=== PATIENT | female | born 2005 | race Caucasian/White ===

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

== ENCOUNTER 2024-01-14 02:13 | Inpatient (IN) | payer OTHER, MEDICAID ==
[~2024-01-14] VITALS: Ht 165.1 cm; Wt 65.9 kg
[2024-01-14] VITALS (11 sets, daily range): BP systolic 95–106; BP diastolic 49–66; PULSE 82–116; TEMP 98.3–101.2; O2SAT 100
[~2024-01-14 02:13] MED LIST changes: -cefTRIAXone 250 MG,Lidocaine PF 1% 0.9 ML IM ONE; -cefTRIAXone 500 MG,Lidocaine PF 1% 1 ML IM ONE
[2024-01-14 02:57] LABS: HEMATOCRIT 39.4 % (35.0-45.0); HEMOGLOBIN 13.2 g/dl (12.0-15.0); MEAN CELL VOLUME 90 fl (80.0-95.0); MEAN CORPUSCULAR HEMOGLOBIN 30 pg (26-32); MEAN CORPUSCULAR HGB CONC 34 g/dl (33.0-37.0); MEAN PLATELET VOLUME 11.2 fl (7.4-10.4); PLATELET COUNT 118 K/mm3 (130-400); REDCELL DISTRIBUTION WIDTH-CV 13.7 % (11.5-14.5)
[2024-01-14] MEDS ORDERED: Acetaminophen 325 MG TAB PO ONE (03:00)
[2024-01-14] MEDS ORDERED: NS 1,000 ML IV ONE (03:00)
[2024-01-14 03:06] LABS: MONOSCREEN NEGATIVE
[2024-01-14 03:08] LABS: ALBUMIN 3.8 g/dL (3.5-5.0); BILIRUBIN,TOTAL 0.3 mg/dL (0.2-1.2); C-REACTIVE PROTEIN 9.21 mg/dL (0.00-0.50); CALCIUM 8.6 mg/dL (8.4-10.2); CREATININE, serum 0.93 mg/dL (0.57-1.11); ERYTHROCYTE SEDIMENTATION RATE 5 mm/hr (0-20); POTASSIUM 3.9 mEq/L (3.5-4.5); TOTAL PROTEIN 6.7 g/dl (6.2-8.1)
[2024-01-14 03:27] LABS: BAND 35 % (0-10); LYMPHOCYTE 3 % (20.0-51.0); NEUTROPHILS 59 % (42.0-75.2); PLATELET ESTIMATE NORMAL (NORMAL)
[2024-01-14 03:44] LABS: COLLECTION METHOD CLEAN CATCH
[2024-01-14] MEDS ORDERED: cefTRIAXone 1 G in Water For Injection,Sterile 10 ML IV ONE (03:45)
[2024-01-14 03:52] LABS: PH 5.5 (5.0-8.5); URINE APPEARANCE CLEAR (CLEAR/HAZY); URINE BLOOD 2+ (NEGATIVE); URINE COLOR Dark Yellow (YELLOW); URINE GLUCOSE NEGATIVE (NEGATIVE); URINE KETONE TRACE (NEGATIVE); URINE NITRATE NEGATIVE (NEGATIVE); URINE PROTEIN(semi-quant) 1+ (NEGATIVE)
[2024-01-14] MEDS ORDERED: Iohexol 300 - 100 ML VIAL IV ONE (04:31)
[2024-01-14] MEDS ORDERED: NS 50 ML IV ONE (04:32)
[2024-01-14] MEDS ORDERED: LR 1,000 ML IV ONE (05:00)
[2024-01-14] MEDS ORDERED: NS 1,000 ML IV SCH (05:30)
[2024-01-14] MEDS ORDERED: Ondansetron 4 MG/2 ML VIAL IV PRN (05:30)
[2024-01-14] MEDS ORDERED: Acetaminophen 325 MG TAB PO PRN (05:30)
--- NOTE | 2024-01-14 06:14 | NUR ---
Vancomycin Initial Dosing Pharmacy Note Ordering provider: Nayan Wang MD Indication/duration: Sepsis, 7 days LABS: SCr 0.93, CrCl~77, GFR 91 Recommendation: Will start Vancomycin 1 gm IV q8h. Pharmacy will continue to closely monitor and check a trough on 01/15/24. Maintenance dose: 1 gram every 8 hours Trough goal: 15-20 ug/mL
--- NOTE | 2024-01-14 06:30 | NUR ---
PATIENT ARRIVED TO ROOM VIA WHEELCHAIR ACCOMPANIED BY GUARD FROM [facility]. SHE WAS ABLE TO AMBULATE FROM WHEELCHAIR TO BED WITHOUT ANY SUPPORTIVE DEVICES. REPORTS PAIN IN HER HEAD, BACK, AND NECK WHICH SHE RATES 8/10. IV NORMAL SALINE INITIATED AT 100 ML/HR. SHE IS ALERT AND ORIENTED AND STABLE ON ROOM AIR. TELEMETRY MONITORING IS IN PLACE. INSTRUCTED NATURAL SCIENCE MANAGER LIGHT USE AND ENSURED CALL LIGHT IS WITHIN REACH. BED IS LOCKED AND IN LOW POSITION.
--- NOTE | 2024-01-14 07:42 | NUR ---
Bedside report received from MELIA Boss. Pt awake in bed having complaints of itchiness on head and upper body. PCT [facility] reported temp of 101.2. Dr. Wang notifed by phone of pt complaints and temperature. Vancomycin infusion stopped per Dr. Wang verbal order and IVF infusing into LAC as ordered. Dr. Wang instructed this nurse to administer Benadryl 15 mg PO once now as verbal order and read back. PRN Tylenol administered per emar for elevated temperature. Pt has no other complaints. Call light within reach.
[2024-01-14] MEDS ORDERED: diphenhydrAMINE 25 MG CAP PO ONE (08:15)
--- NOTE | 2024-01-14 09:35 | NUR ---
SW met with patient to complete initial assessment for discharge planning. Chart reviewed prior to visit. Patient has [employer] officer at bedside due to patient being in custody at this time. Patient verified that she lists her mother Lauren Lorenzo ([phone]) as primary contact. Per officer, patient is planned to return to penitentiary at time of discharge.
--- NOTE | 2024-01-14 09:38 | NUR ---
Pt resting in bed with no complaints. Shift assessment completed. VSS. Recheck temperature noted at 99.9. Officer at bedside with pt. IVF infusing into LAC with no complications. Telemetry in place. Pt has no complaints at this time. Call light within reach.
[2024-01-14] MEDS ORDERED: oxyCODONE 5 MG TAB PO PRN (10:00)
[2024-01-14] MEDS ORDERED: Azithromycin 250 MG TAB PO ONE (10:00)
[2024-01-14] MEDS ORDERED: BACTRIM DS 8001 TAB PO (11:29)
[2024-01-14] MEDS ORDERED: Ibuprofen 600 MG TAB PO ONE (16:00)
--- NOTE | 2024-01-14 20:38 | NUR ---
UPON SHIFT ASSESSMENT RICCO WAS AXO X 4 IN BED. PRECISE WINDER WAS BEDSIDE. SHE DENIES FLANK PAIN AND SOA AT THIS TIME. VS ARE CURRENTLY WNL. [facility], "I AM STARVING." PATIENT HAS AMBULATED TO RESTROOM WITH NO COMPLICATIONS AND DENIES DYSURIA OR FREQUENCY. PHYSICAL AND MED PASS COMPLETE.
--- NOTE | 2024-01-14 23:30 | NUR ---
CALL PLACED TO HOSPITALISTBALJINDER. PATIENT C/O OF ITCHY RASH R/T ALLERGIC REACTION FROM VANCOMYCIN ADMINISTERED ON 01/14/24 AT 0700. PATIENT HAS MILD RASH ON BLLE AND LLE. TORB FOR 25MG BENADRYL IV GIVEN.
[2024-01-14] MEDS ORDERED: Menthol Cough/Sore Throat LOZENGE MM PRN (23:45)
[2024-01-14] MEDS ORDERED: diphenhydrAMINE 50 MG/ML 1 ML VIAL IV ONE (23:45)
[2024-01-15] VITALS (12 sets, daily range): BP systolic 96–121; BP diastolic 53–77; PULSE 62–110; TEMP 98.2–102.5
--- NOTE | 2024-01-15 03:30 | NUR ---
CALL PLACED TO HOSPITALIST BALJINDER. PATIENT RASH SPREADING AND PATIENT CONTINUES TO COMPLAIN OF ITCHING AND FACIAL SWELLING. AIRWAY IS PATENT. PATIENT FEBRILE AT 102 AND WAS GIVEN TYLENOL. HOSPITALIST ASSESSING PATIENT BEDSIDE. VORB TO PAUSE ZOSYN ADMINISTERATION AND GIVE SOLUMEDROL, PEPSCID AND BENADRYL GIVEN. HOSPITALIST TO PLACE DOSEAGE.
[2024-01-15] MEDS ORDERED: methylPREDNISolone Sod Succ 40 MG/ML VIAL IV ONE (03:45)
[2024-01-15] MEDS ORDERED: diphenhydrAMINE 50 MG/ML 1 ML VIAL IV ONE (03:45)
[2024-01-15] MEDS ORDERED: cefTRIAXone 1 G in Water For Injection,Sterile 10 ML IV SCH (04:00)
[2024-01-15 06:21] LABS: HEMOGLOBIN 11.7 g/dl (12.0-15.0); MEAN CELL VOLUME 90 fl (80.0-95.0); MEAN CORPUSCULAR HEMOGLOBIN 31 pg (26-32); MEAN CORPUSCULAR HGB CONC 34 g/dl (33.0-37.0); PLATELET COUNT 82 K/mm3 (130-400); RED BLOOD COUNT 3.82 M/mm3 (4.10-5.30)
[2024-01-15 06:34] LABS: CALCIUM 7.7 mg/dL (8.4-10.2); CREATININE, serum 0.73 mg/dL (0.57-1.11); POTASSIUM 3.6 mEq/L (3.5-4.5)
[2024-01-15 06:43] LABS: HEMATOCRIT 34.5 % (35.0-45.0)
[2024-01-15 07:36] LABS: BAND 43 % (0-10); EOSINOPHIL 1 % (0-4); LYMPHOCYTE 14 % (20.0-51.0); NEUTROPHILS 40 % (42.0-75.2); PLATELET ESTIMATE DECREASED (NORMAL)
[2024-01-15 07:38] LABS: BURR CELLS 1+
[2024-01-15] MEDS ORDERED: diphenhydrAMINE 25 MG CAP PO PRN (10:30)
[2024-01-15] MEDS ORDERED: diphenhydrAMINE 25 MG CAP PO SCH (11:00)
[2024-01-15] MEDS ORDERED: methylPREDNISolone Sod Succ 40 MG/ML VIAL IV SCH (11:00)
--- NOTE | 2024-01-15 12:10 | NUR ---
D: Toilet Products Molder stopped by room on rounds. A: Pt was resting and content. Pt has no needs right now. P: Toilet Products Molder informed pt that if she needed anything from the frame stripper area to let her nurse know. Toilet Products Molder will follow up as needed.
[2024-01-15] MEDS ORDERED: oxyCODONE 5 MG TAB PO PRN (13:00)
--- NOTE | 2024-01-15 13:59 | NUR ---
PATIENT ALERT AND ORIENTED X4. VSS. PATIENT HERE FOR UTI, SOA, CHEST TIGHTNESS. PATIENT DOES NOT REPORT PAIN THIS AM. IV TO LEFT AC WITH NS RUNNING AT 100ML/HOUR. AM MEDS ADMINISTERED. PATIENT REPORTS RASH SCATTERED THROUGHOUT UPPER AND LOWER EXTREMITIES AND TRUCK. POELL NOTIFIED. IV ABX STOPPED TO MONITOR AND BENADRYL, SOLUMEDROL ORDERED. NO FURTHER NEEDS. CALL LIGHT IN REACH.
--- NOTE | 2024-01-15 15:15 | NUR ---
THIS NURSE WAS INFORMED BY [facility] THAT THIS PATIENT IS NO LONGER IN CUSTODY AND IS NOW RELEASED FROM THEIR PROTECTION. [employer] STATED THEY NO LONGER NEED TO BE INFORMED OR CONTACTED REGARDING THIS PATIENT. HOUSE AND CHARGE NURSE NOTIFED OF THIS CHANGE.
--- NOTE | 2024-01-15 18:34 | NUR ---
PT RESTING IN BED WITH FRIEND AT BEDSIDE. PT SHOWERED THIS AFTERNOON AND REPORTS FEELING MUCH BETTER TODAY THAN YESTERDAY. PT DENIES PAIN AT THIS TIME. PT HAS NO QUESTIONS OR CONCERNS. CALL LIGHT WITHIN REACH. BED IN LOWEST POSITION.
--- NOTE | 2024-01-15 20:05 | NUR ---
Patient resting in bed with significant other at bedside. Denies any pain. Snack and fresh water provided. Assessment complete. IV in left AC infusing without complications. Call light and persoanl items in reach. Bed in low position.
[2024-01-16] VITALS (8 sets, daily range): BP systolic 111–119; BP diastolic 65–79; PULSE 52–78; TEMP 97.4–98.6
--- NOTE | 2024-01-16 03:10 | NUR ---
Hospitalist called and notifed patient is unable to sleep and hasn't been able to sleep all night. Recieved orders for 6mg melatonin QHS prn.
[2024-01-16] MEDS ORDERED: Melatonin 3 MG TAB PO PRN (03:15)
[2024-01-16 06:11] LABS: HEMATOCRIT 36.1 % (35.0-45.0); MEAN CELL VOLUME 89 fl (80.0-95.0); MEAN CORPUSCULAR HEMOGLOBIN 30 pg (26-32); MEAN CORPUSCULAR HGB CONC 33 g/dl (33.0-37.0); MEAN PLATELET VOLUME 12.1 fl (7.4-10.4); PLATELET COUNT 93 K/mm3 (130-400); RED BLOOD COUNT 4.06 M/mm3 (4.10-5.30); REDCELL DISTRIBUTION WIDTH-CV 14.2 % (11.5-14.5)
[2024-01-16 06:30] LABS: CALCIUM 8.3 mg/dL (8.4-10.2); CREATININE, serum 0.66 mg/dL (0.57-1.11); POTASSIUM 3.9 mEq/L (3.5-4.5)
[2024-01-16 07:02] LABS: BAND 41 % (0-10); LYMPHOCYTE 21 % (20.0-51.0); NEUTROPHILS 29 % (42.0-75.2); PLATELET ESTIMATE DECREASED (NORMAL)
--- NOTE | 2024-01-16 08:40 | NUR ---
PT LAYING IN BED UPON ENTERING. ASSESSMENT DONE, MEDS GIVEN PER ORDER. PT REPORTS 6/10 UPPER ABDOMINAL PAIN AND GIVEN PRN OXYCODONE. FLUIDS RUNNING IN LEFT AC PER ORDER. PER REPORT PT HAD AN ALLERGIC REACTION TO ANTIBIOTIC YESTERDAY. PT DENIES SHORTNESS OF BREATH. PT REPORTS ITCHY SKIN BUT STATES THAT IT IS AN IMPROVEMENT. RASH NOTED ALL OVER BACK, UPPER ARMS, UPPER THIGHS AND CHEST. PT DENIES NEEDS. BED IN LOWEST POSITION, CALL LIGHT IN REACH.
[2024-01-16] MEDS ORDERED: BENADRYL25 M2 PO (11:15)
[2024-01-16] MEDS ORDERED: CEFTIN 250250 MG/TAB PO (11:16)
[2024-01-16] MEDS ORDERED: PREDNISONE20 MG PO (11:16)
--- NOTE | 2024-01-16 12:45 | NUR ---
IV REMOVED AND PT GIVEN DISCHARGE INSTRUCTIONS. THIS NURSE EDUCATED PT ON IMPORTANCE OF KEEPING FOLLOW UP APPOINTMENTS AND PICKIN UP MEDS, PT VERBALIZED UNDERSTANDING AND STATES THAT SHE WANTS TO TAKE A SHOWER.
--- NOTE | 2024-01-16 13:56 | NUR ---
home economics extension worker was notified patient was released from police custody and just needs to follow up with her PO. IRVING attended interdisciplinary clinical rounding with Dr. Wang. Patient is medically ready for discharge today. IRVING met with patient and confirmed she is currently living in [place]. Patient does not have a PCP but would like to get set up with one and did not care which one as long as they accepted her insurance. Pharmacy is [facility] in [facility]. No DPOA-HC or DME. Patient not interested in completing DPOA-HC in the hospital. Patient reports to be independent with ADLS. Patient is working on obtaining a ride from friends or a family member that works in the hospital. IRVING provided the [facility] Resource Guide and Mental Health Resources. Patient asked about [place]. IRVING explained they have walk in hours Friday through Friday [phone] at the [place] location. IRVING left a message with Kaycee to get patient scheduled at their health center. IRVING was notified the director of community center was able to get patient scheduled at [facility] in [place] with Dr. Huntley. Patient has an appointment scheduled for January 28. IRVING provided the PCP list with the address to [facility] in [place] to the patient with the information of the appointment on January 28. IRVING attempted to contact Kaycee to cancel the message left earlier but they closed the office at 2 pm. IRVING notified patient she is established at [facility] and if Kaycee contacts her she can let them know she was able to find a PCP. Discharge plan: Home
--- NOTE | 2024-01-16 15:01 | NUR ---
PT DRESSED IN PERSONAL CLOTHES AND IS WAITING FOR A RIDE
--- NOTE | 2024-01-16 15:41 | NUR ---
PT ESCORTED TO PERSONAL VEHICLE BY PCT WITH BELONGINGS
== END 2024-01-16 15:42 | disposition home or self-care (01) | DRG 872 ==
LOC: COL.ER 02:13 → MEDICAL 04:55
PROVIDERS: Emergency Medicine; Physician Assistant; ADMIT Internal Medicine
DX: A41.89 Other specified sepsis (principal); N12 Tubulo-interstitial nephritis, not specified as acute or chronic; Z20.822 Contact with and (suspected) exposure to COVID-19; R59.1 Generalized enlarged lymph nodes; M79.10 Myalgia, unspecified site; L27.0 Generalized skin eruption due to drugs and medicaments taken internally; T45.0X5A Adverse effect of antiallergic and antiemetic drugs, initial encounter; T36.8X5A Adverse effect of other systemic antibiotics, initial encounter; R16.1 Splenomegaly, not elsewhere classified; D69.6 Thrombocytopenia, unspecified; B34.9 Viral infection, unspecified; Z90.89 Acquired absence of other organs; Z79.899 Other long term (current) drug therapy; Z88.1 Allergy status to other antibiotic agents
CPT/HCPCS: J0696; J1200; J2543; J2919; J3370; J7030; J7050; J7120; Q9967